=== PATIENT | female | born 1960 | race Caucasian/White ===

== ENCOUNTER 2019-03-09 07:06 | Day surgery (SDC) | payer MEDICAID ==
[2019-03-09] VITALS (9 sets, daily range): BP systolic 103–130; BP diastolic 47–74
[~2019-03-09] VITALS: Ht 160 cm; Wt 89.5 kg
[2019-03-09] MEDS ORDERED: diphenhydrAMINE 25mg capsule PO PRN (07:30)
[2019-03-09] MEDS ORDERED: normal saline 1,000 ML IV SCH (07:30)
[2019-03-09 07:39] LABS: BASOPHILS # (AUTO) 0.1 X10'3 (0-0.2); BASOPHILS % (AUTO) 0.7 % (0-1); EOSINOPHILS # (AUTO) 0.2 X10'3 (0-0.9); EOSINOPHILS % (AUTO) 1.9 % (0-6); HEMOGLOBIN 13.4 g/dl (12.0-16.0); LYMPHOCYTES # (AUTO) 3.2 X10'3 (1.1-4.8); MEAN CORPUSCULAR HEMOGLOBIN 28.5 PG (27.0-31.0); MEAN CORPUSCULAR HGB CONC 33.4 g/dL (33.0-36.5); MEAN CORPUSCULAR VOLUME 85.2 FL (78-98); MEAN PLATELET VOLUME 7.4 FL (7.4-10.4); MONOCYTES # (AUTO) 0.6 X10'3 (0-0.9); MONOCYTES % (AUTO) 6.8 % (2-12); NEUTROPHILS # (AUTO) 4.9 X10'3 (1.8-7.7); NEUTROPHILS % (AUTO) 54.6 % (42-75); PLATELET COUNT 349 X10'3 (140-440); RED CELL DISTRIBUTION WIDTH 15.3 % (11.5-14.5); WHITE BLOOD COUNT 8.9 X10'3 (4.5-11.0)
[2019-03-09 07:57] LABS: ALBUMIN 3.4 G/DL (3.4-5.0); ANION GAP 8 (8-16); BLOOD UREA NITROGEN 8 MG/DL (7-18); BUN/CREATININE RATIO 11.8 (6.6-38.0); CALCIUM 8.9 MG/DL (8.5-10.1); CHLORIDE 106 MMOL/L (99-107); CREATININE 0.68 MG/DL (0.40-0.90); GLUCOSE 128 MG/DL (70-104); MAGNESIUM 1.9 MG/DL (1.5-2.4); POTASSIUM 3.9 MMOL/L (3.5-5.1); SODIUM 141 MMOL/L (135-145); TOTAL CARBON DIOXIDE 27.1 MMOL/L (24-32); eGFR 89 ML/MIN
[2019-03-09] MEDS ORDERED: SERT100T10 PO (08:08)
[2019-03-09] MEDS ORDERED: METO-539 PO (08:08)
[2019-03-09] MEDS ORDERED: ACYC400T PO (08:08)
[2019-03-09] MEDS ORDERED: LORA10TA7 PO (08:08)
[2019-03-09] MEDS ORDERED: OMEP20CA11 PO (08:08)
[2019-03-09] MEDS ORDERED: NITR0.4T51 SL (08:08)
[2019-03-09] MEDS ORDERED: EST1T PO (08:08)
[2019-03-09] MEDS ORDERED: fentaNYL/PF 50MCG/1 ML 2ML syringe ONE (08:44)
[2019-03-09] MEDS ORDERED: LIDOcaine 1% W/epiNEPHrine 1:100,000 20ml vial ONE (08:44)
[2019-03-09] MEDS ORDERED: midazolam 2 mg/2 ml injection ONE ×4 (08:44→10:08)
[2019-03-09] MEDS ORDERED: vancomycin 1,000mg inj ONE (08:50)
== END 2019-03-09 12:40 | disposition home or self-care (01) ==
LOC: SSTAY O 07:06
PROVIDERS: ATTEND Internal Medicine Cardiovascular Disease
DX: Z45.010 Encounter for checking and testing of cardiac pacemaker pulse generator [battery] (principal); I10 Essential (primary) hypertension; Z79.899 Other long term (current) drug therapy; Z79.01 Long term (current) use of anticoagulants
CPT/HCPCS: 33227; 36415; 80048; 83735; 85025; 85610; 93005; 99152; 99153; C1786; J2250; J3010; J3370; J7030; Q0163; A4620